=== PATIENT | male | born 1995 | race Caucasian/White ===

== ENCOUNTER 2016-10-26 20:23 | Emergency (ER) | payer BC, OTHER ==
--- NOTE | 2016-10-26 20:46 | UC ---
Hand/Wrist HPI - HPI Summary HPI Summary: 20 yo male hit with lacrosse ball last pm Injured left thumb He is right handed some bleeding yesterday Td utd - History Of Current Complaint Chief Complaint: UCUpperExtremity Stated Complaint: THUMB INJURY Time Seen by Provider: 10/26/16 20:39 Hx Obtained From: Patient Onset/Duration: Sudden Onset, Lasting Hours Severity Initially: Severe Severity Currently: Moderate Pain Intensity: 4 Pain Scale Used: 0-10 Numeric Character Of Pain: Dull, Aching, Throbbing Aggravating Factor(s): Movement Alleviating: Rest Associated Signs And Symptoms: Positive: Swelling, Bruising Related History: Dominant Hand Right - Allergies/Home Medications Allergies/Adverse Reactions: Allergies Allergy/AdvReac Type Severity Reaction Status Date / Time Penicillins Allergy Rash Verified 10/26/16 20:36 Home Medications: Home Medications NK [No Home Medications Reported] 10/26/16 [History Confirmed 10/26/16] PMH/Surg Hx/FS Hx/Imm Hx Previously Healthy: Yes Endocrine History Of: Denies: Diabetes, Thyroid Disease Cardiovascular History Of: Denies: Cardiac Disorders, Hypertension, Pacemaker/ICD, Congestive Heart Failure, Atrial Fibrillation Respiratory History Of: Denies: COPD, Asthma, Bronchitis GI/ History Of: Denies: Ulcer - Surgical History Surgical History: None - Family History Known Family History: Negative: Cardiac Disease, Hypertension, Diabetes - Social History Alcohol Use: Occasionally Substance Use Type: None Smoking Status (MU): Never Smoked Tobacco Review of Systems Constitutional: Negative Skin: Bruising Eyes: Negative ENT: Negative Respiratory: Negative Cardiovascular: Negative Gastrointestinal: Negative Genitourinary: Negative Motor: Negative Neurovascular: Negative Musculoskeletal: Arthralgia Neurological: Negative Psychological: Negative All Other Systems Reviewed And Are Negative: Yes Physical Exam Triage Information Reviewed: Yes Appearance: Well-Appearing, No Pain Distress, Well-Nourished Vital Signs: Initial Vital Signs Pulse 96 10/26/16 20:29 Resp 20 10/26/16 20:29 BP 152/72 10/26/16 20:29 Pulse Ox 97 10/26/16 20:29 Eye Exam: Normal Eyes: Positive: Conjunctiva Clear ENT: Positive: Hearing grossly normal. Negative: Nasal congestion, Nasal drainage, Tonsillar exudate, Trismus Neck: Positive: Supple, Nontender Respiratory: Positive: Lungs clear, Normal breath sounds, No respiratory distress Cardiovascular: Positive: RRR, No Murmur. Negative: Tachycardia, Bradycardia Musculoskeletal: Positive: ROM Limited @, Edema @, Other: - see image Psychological Exam: Normal Skin Exam: Normal Hand/Wrist Course/Dx - Differential Dx/Diagnosis Provider Diagnoses: fracture left thumb prox distal phalanx involving articular surface Discharge - Discharge Plan Condition: Stable Disposition: HOME Patient Education Materials: Thumb Fracture (ED) Referrals: Yeyo Harris MD [Medical Doctor] - As Soon As Possible Additional Instructions: rest elevate splint you need to see an orthopedist your bp was high here and you you get it recheck by your MD when able 152/72 Images Hands: 1 - sealed 1 cm lac 2 - tender/swollen
--- NOTE | 2016-10-26 21:15 | RAD ---
INDICATION: Lacrosse injury to the left thumb with pain now at the interphalangeal joint. COMPARISON: None TECHNIQUE: 3 views of the left thumb were obtained. FINDINGS: The bones are normal alignment. Joint spaces appear maintained. At the proximal pole of the left thumb distal phalanx there is a longitudinally oriented lucency extending to the articulating surface of the bone. IMPRESSION: Likely nondisplaced fracture involving the proximal pole of the left thumb distal phalanx.
[2016-10-26 21:22] VITALS: BP 149/72
== END 2016-10-26 21:17 | disposition home or self-care (01) ==
LOC: UCEAST 20:23
DX: S62.522A Displaced fracture of distal phalanx of left thumb, initial encounter for closed fracture (principal); W21.09XA Struck by other hit or thrown ball, initial encounter; Y93.9 Activity, unspecified; Y92.9 Unspecified place or not applicable; Z88.0 Allergy status to penicillin; R03.0 Elevated blood-pressure reading, without diagnosis of hypertension
CPT/HCPCS: 26750; 99211; G0463

== ENCOUNTER → 2016-11-05 09:53 | Day surgery (SDC) | payer BC ==
--- NOTE | 2016-10-31 10:21 | HP ---
PREOPERATIVE HISTORY AND PHYSICAL: DATE OF SURGERY/ADMISSION: 11/05/16 [facility] DATE OF OFFICE VISIT/ENCOUNTER: 10/30/16 ATTENDING SURGEON: Socorro Malone MD. PROCEDURE: Left thumb closed reduction and pinning. CHIEF COMPLAINT: Left thumb pain/fracture after injury. 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 He injured his left thumb on 10/25/16 while playing lacrosse. He was holding his lacrosse stick and his thumb got hit on the dorsal aspect of the IP joint when he fell. He continued to play and played the next day, and then ended up going to [facility] where an x-ray showed a fracture of the distal phalanx with subluxation at the IP joint. He has been splinted since then and was referred to Dr. Malone after evaluation. Dr. Malone is suggesting surgical intervention at this time in the form of closed reduction and pinning, and the patient has consented to proceed. PAST MEDICAL HISTORY: Unremarkable. PAST SURGICAL HISTORY: None. MEDICATIONS: None. ALLERGIES: PENICILLIN causes a rash. FAMILY MEDICAL HISTORY: Noncontributory. 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 He denies tobacco and recreational drug use. Does drink alcohol on occasion. REVIEW OF SYSTEMS: General: Negative for fevers, chills, or night sweats. No known anesthesia problems. HEENT: Negative for headache, lightheadedness, or syncopal episodes. Integumentary: Negative for abrasions, lesions, or open wounds. Cardiothoracic: Negative for chest pain, palpitations, or edema. Negative for hypertension. Pulmonary: Negative for shortness of breath with exertion, chronic cough, COPD. GI: Negative for nausea, vomiting, diarrhea, constipation, or GERD. : Negative for nocturia, urinary frequency, urgency, history of UTIs, or kidney problems. Musculoskeletal: Positive for current complaint, otherwise negative. Neurological: Negative for paresthesias, numbness, history of seizure, stroke, or epilepsy. Endocrine: Negative for diabetes or thyroid issues. Hematologic: Negative for easy bruising, anemia, excessive bleeding, or history of DVT. Infectious Disease: Negative for history of MRSA, hepatitis C, and HIV. PHYSICAL EXAMINATION GENERAL: Well-developed, well-nourished 20-year-old male in no acute distress. VITAL SIGNS: Height 5 feet 9 inches, weight 180 pounds, pulse rate 72, blood pressure 115/78. HEENT: Normocephalic, atraumatic. Pupils are equal, round, and reactive to light and accommodation. Extraocular movements are intact. Throat is clear. NECK: Supple. No palpable lymph nodes. PULMONARY: Lungs are clear to auscultation bilaterally. No wheezes, rales, or rhonchi. CARDIOTHORACIC: Regular rate and rhythm. S1, S2. No murmurs, rubs, or gallops. No edema. ABDOMEN: Positive bowel sounds, soft, nontender. NEUROLOGICAL: Alert and oriented x3. Cranial nerves II through XII are intact. Sensation is intact to light touch. MUSCULOSKELETAL: On exam of his left thumb, there is ecchymosis, swelling, and tenderness. He has active IP flexion, but this causes him pain and he has limited range of motion. He has flexion. He has full extension of the thumb. Skin is intact. Neurovascular function is intact. IMAGING: X-rays of the left thumb show that the IP joint is subluxed, the distal phalanx is dorsally subluxed at the base of the proximal phalanx, and there is a fracture fragment on the volar distal phalanx. IMPRESSION: Fracture subluxation of the left thumb distal phalanx. PLAN: The patient is scheduled to undergo closed reduction and pinning of the left thumb with Dr. Malone on 11/05/16. He will return to the office in 10 to 14 days postop for followup and suture removal. Prescription for Mobile was e- scribed to the patient's pharmacy for post-operative pain management. TEODORA LEMUS [id number]/[facility] #: [id number] JAROCHO
[~2016-11-05 09:53] MED LIST: Buffered Lidocaine 1% SYRIN* 3 ML/SYR SYRINGE INTRADERM ONE; Clindamycin 900 MG IVPREMIX(* 900 MG/50 ML SDV IV ONE; Dexamethasone IV* 4 MG/ML 1 ML (4 MG) ONE; HYDROcodone/ACETAMIN 5-325 MG* 1 TAB ONE; Ketorolac INJ* 30 MG/ML 1 ML VIAL IV PRN; Lidocaine 1% INJ* 10 MG/ML 30 ML SDV ONE; Lidocaine 2% PF* 5 ML VIAL ONE; Metoclopramide IV* 5 MG/ML 2 ML VIAL ONE; Midazolam* 1 MG/ML 2 ML VIAL (2 MG) ONE; Ondansetron INJ* 2 MG/ML VIAL IV PRN; fentaNYL* 50 MCG/ML 2 ML VIAL (100 MCG VIAL) IV PRN
[2016-11-05 12:57] VITALS: BP 130/72
--- NOTE | 2016-11-05 15:05 | RAD ---
INDICATION: Traumatic fracture of the left thumb operative reduction. COMPARISON: Comparison is made with a prior x-ray study of the thumb from October 30, 2016. TECHNIQUE: 3 minutes and 8 seconds of intermittent fluoroscopic guidance were provided and 2 spot films of the left thumb were obtained in the operating room. FINDINGS: The films demonstrate 2 K wires spanning the distal phalanx and distal aspect of the proximal phalanx. The bones are in normal alignment. IMPRESSION: INTRAOPERATIVE CONTROL FILMS. CPT II Codes: 6045F
--- NOTE | 2016-11-06 03:00 | OP ---
DATE OF OPERATION: 11/05/16 [facility] DATE OF : 89 SURGEON: Socorro Malone MD SEPTIC TANK SERVICER: TEODORA Keen ANESTHESIOLOGIST: Buck Cabrera MD ANESTHESIA: General. PRE-OP DIAGNOSIS: Fracture subluxation of left thumb IP joint. POST-OP DIAGNOSIS: Fracture subluxation of left thumb IP joint. OPERATIVE PROCEDURE: Closed reduction pinning, left thumb. INDICATIONS: Juventino is a 20-year-old male who has injured playing lacrosse. He has a fracture of his distal phalanx of the left thumb and subluxation of his joint. He presents for closed reduction and pinning. ESTIMATED BLOOD LOSS: Zero. TOURNIQUET TIME: Zero. DESCRIPTION OF PROCEDURE: The patient was brought to the operating room and was given a general anesthetic and placed in a supine position on the operating table with the tourniquet around his left upper arm. The tourniquet was not used during the procedure. The skin of his left hand and forearm was prepped and draped in the usual sterile fashion. The fracture was reduced with the aid of the C-arm and then two 0.035-inch K-wires were driven through the distal phalanx across the IP joint and into the middle phalanx. This reduced the fracture very nicely and the joint as well. The pins were cut, dressed with Xeroform, 4x4, Webril, and a thumb spica splint. The patient tolerated the procedure well and was brought to the recovery room in good condition. [id number]/[facility] #: [id number] MTDD
== END | disposition home or self-care (01) ==
LOC: OREAST 09:53
PROVIDERS: ATTEND Orthopaedic Surgery
DX: S62.522A Displaced fracture of distal phalanx of left thumb, initial encounter for closed fracture (principal); W03.XXXA Other fall on same level due to collision with another person, initial encounter; Y93.65 Activity, lacrosse and field hockey; Y92.328 Other athletic field as the place of occurrence of the external cause
CPT/HCPCS: 76000; C1776; J1100; J2001; J2250